=== PATIENT | male | born 1960 | race Caucasian/White ===

== ENCOUNTER 2021-11-24 15:11 | Emergency (ER) | payer OTHER ==
[2021-11-24 15:41] VITALS: BP 108/63; PULSE 72; TEMP 98.2; BMI 31.6
[2021-11-24] MEDS ORDERED: FAMOTIDINE 20 MG/50 ML IVPB 20 MG/50 ML MG IVPB ONE (20:46)
[2021-11-24] MEDS ORDERED: FAMOTIDINE 10 MG/ML VIAL IVPB ONE (20:48)
[2021-11-24] MEDS ORDERED: MAG HYDROX/AL HYDROX/SIMETH 30 ML UNIT-DOSE CUP PO ONE (20:52)
[2021-11-24] MEDS ORDERED: MAG HYDROX/AL HYDROX/SIMETH 30 ML UNIT-DOSE CUP ONE (21:06)
[2021-11-24 21:20] LABS: BASO % 0.6 % (0-2.0); HEMATOCRIT 42.7 % (35.4-49); HEMOGLOBIN 14.5 GM/dL (11.7-16.9); LYMPH % 23.6 % (8-40); MCH 33.6 pg (25.7-33.7); MCHC 33.8 g/dl (32.0-35.9); MEAN CELL VOLUME 99.2 fl (80-96); MEAN PLT VOLUME 8.5 fl (7.5-11.1); MONO % 10.4 % (3.8-10.2); NEUT % 60.4 % (42.8-82.8); PLATELET COUNT 178 10^3/uL (134-434); RDW 14.6 % (11.9-15.9); WHITE BLOOD COUNT 6.7 K/mm3 (4.0-10.0)
[2021-11-24 21:31] LABS: INR 1.04 (0.83-1.09)
[2021-11-24 21:46] LABS: ALBUMIN 3.7 g/dl (3.4-5.0); MAGNESIUM 2.3 mg/dL (1.8-2.4)
[2021-11-24 21:51] LABS: BILIRUBIN,TOTAL 0.4 mg/dL (0.2-1)
[2021-11-24 22:51] LABS: LACTIC ACID 2.9 mmol/L (0.4-2.0)
[2021-11-24 23:09] LABS: URINE APPEARANCE CLEAR; URINE BILIRUBIN NEGATIVE (NEGATIVE); URINE COLOR YELLOW; URINE GLUCOSE (UA) NEGATIVE (NEGATIVE); URINE KETONE NEGATIVE (NEGATIVE); URINE LEUK ESTERASE NEGATIVE (NEGATIVE); URINE NITRITE NEGATIVE (NEGATIVE); URINE PROTEIN NEGATIVE (NEGATIVE); URINE UROBILINOGEN 0.2 mg/dL (0.2-1.0)
[2021-11-24] MEDS ORDERED: SODIUM CHLORIDE 0.9% 500 ML INFUS.BAG IV ONE (23:32)
== END 2021-11-25 02:20 | disposition home or self-care (01) ==
LOC: JER 15:11
PROC: 3E033GC Introduction of Other Therapeutic Substance into Peripheral Vein, Percutaneous Approach (ICD-10-PCS; principal; 2021-11-24)
DX: R10.13 Epigastric pain (principal)
CPT/HCPCS: 36415; 71046-TC-FY; 74177-TC; 80053; 81003; 83605; 83690; 83735; 84484; 85025; 85610; 86850; 86900; 86901; 87086; 93005; 93010; 99285-25